=== PATIENT | female | born 2000 | race Asian ===

== ENCOUNTER 2020-09-06 16:04 | Outpatient (CLI) | payer OTHER ==
[2020-09-06 16:35] VITALS: BP 121/80; PULSE 104
[2020-09-06 18:51] VITALS: BP 128/93; PULSE 98
== END 2020-09-06 19:00 | disposition home or self-care (01) ==
LOC: LDRO 16:04 → COL.ER 16:04 → EDSTATUS 16:09 → LDRO 19:00
DX: T76.21XA Adult sexual abuse, suspected, initial encounter (principal)